=== PATIENT | female | born 1950 | race Caucasian/White ===

== ENCOUNTER 2025-05-31 12:33 | Emergency (ER) | payer MEDICARE, OTHER, SELFPAY ==
--- OUTSIDE RECORDS SUMMARY | 2025-05-31 12:44 | XMS_ITS | Patient Health Record ---
Author Organization [facility] Address [address] [place] [address] Care Team Providers Care Dining Car Waiter/Waitress Name Role Phone kayleemaria luisa PiersondStu Unavailable [phone] Reason For Referral No Information Immunizations Vaccine Route Administration Date Status Comme nts Flu high dose IM Intramuscular 08/26/2021 Administered zzzCOVID - Pfizer IM Intramuscular 01/28/2021 Administered zzzCOVID - Pfizer IM Intramuscular 08/26/2021 Administered zzzCOVID - Pfizer IM Intramuscular 09/24/2021 Administered Plan Of Treatment No Information Insurance Providers Payer Name Payer Address Payer Phone Subscriber Number Group Number Insured Name Patient Relationship to Insured Coverage Start Date Coverage End Date Medicare ( MAIN ) [facility] [address] [place], [place] [id number] [phone] [id number] Gretchen Mehta Self - patient is the insured
[2025-05-31 12:46] VITALS: BP 121/67; PULSE 62; RESP 16; TEMP 36.2; O2SAT 99
--- NOTE | 2025-05-31 13:01 | ED.GENADULT ---
HPI - General Adult General Chief complaint: Ear Stated complaint: LT Ear Problem History of Present Illness HPI narrative: Gretchen Mehta is a 74 y/o female with PMHx of HTN, GERD and HLD who presents today with having some crackling feeling in her left ear for about 3-4 days and now she is having pain to that ear. SHe denies any known fevers/ no sore throat/ no congestion / no cough. Related Data Home Medications ?Medication ?Instructions ?Recorded ?Confirmed ?Last Taken ?Type aspirin 81 mg tablet,delayed mg 05/31/25 Unknown History release omeprazole 20 mg capsule,delayed mg 05/31/25 Unknown History release simvastatin 10 mg tablet mg 05/31/25 Unknown History timolol maleate 0.5 % eye drops drp 05/31/25 Unknown History Allergies Allergy/AdvReac Type Severity Reaction Status Date / Time guaifenesin (From Entex [place]) AdvReac Intermediate Headache Verified 05/31/25 12:52 phenylephrine (From [employer]tex [place]) AdvReac Intermediate Headache Verified 05/31/25 12:52 phenylpropanolamine (From AdvReac Intermediate Headache Verified 05/31/25 12:52 Entex [place]) Review of Systems Review of Systems: All systems reviewed & are unremarkable except as noted in HPI and below Exam Narrative: GENERAL: Well-appearing, well-nourished, and in no acute distress. HEAD: Normocephalic, atraumatic. EYES: PERRLA and EOMI. ENT: Nares clear, no rhinorrhea or epistaxis. Mucous membranes moist. Oropharynx without tonsillar hypertrophy exudate or other lesions. R TM pearly valdez non bulging canal clear, LTM + effusion with some pus at the base wtih mild erythema noted, canal is clear NECK: Supple. No adenopathy or masses. CHEST: Clear to auscultation. No respiratory distress. No wheezes rales or rhonchi HEART: Regular rate and rhythm. EXTREMITIES: Normal range of motion. No edema. SKIN: Warm, dry, no rash. NEURO: No focal deficits. Alert and oriented x3. Course Course Level of Care: Express Care Visit Vital Signs Vital signs: Vital Signs Temperature 36.2 C L 05/31/25 12:46 Pulse Rate 62 05/31/25 12:46 Respiratory Rate 16 05/31/25 12:46 Blood Pressure 121/67 05/31/25 12:46 Pulse Oximetry 99 05/31/25 12:46 Temperature 36.2 C L 05/31/25 12:46 Pulse Rate 62 05/31/25 12:46 Respiratory Rate 16 05/31/25 12:46 Blood Pressure 121/67 05/31/25 12:46 Pulse Oximetry 99 05/31/25 12:46 Medical Decision Making MDM Narrative Medical decision making narrative: 74 y/o presenting with acute ear pain, exam consistent with otitis media with effusion. No mastoid tenderness or headaches or neck stiffness, doubt mastoiditis or meningitis, patient is very well-appearing. Started on amoxicillin and zyrtec. Patient discharged in stable condition to follow up with PCP. Pulse oximetry interpretation: not hypoxic DISPOSITION: Discharged to home in stable condition. IMPRESSION: 1. Acute otitis media, with effusion Left Medical Records Medical records reviewed: Yes I reviewed the external patient's medical records. Vital Signs Vital Signs: Vital Signs Temperature 36.2 C L 05/31/25 12:46 Pulse Rate 62 05/31/25 12:46 Respiratory Rate 16 05/31/25 12:46 Blood Pressure 121/67 05/31/25 12:46 Pulse Oximetry 99 05/31/25 12:46 Temperature 36.2 C L 05/31/25 12:46 Pulse Rate 62 05/31/25 12:46 Respiratory Rate 16 05/31/25 12:46 Blood Pressure 121/67 05/31/25 12:46 Pulse Oximetry 99 05/31/25 12:46 VItals reviewed by sc Discharge Plan Discharge Clinical Impression: Otitis media Qualifiers: Otitis media type: mucoid Chronicity: acute Laterality: left Qualified Code(s): H65.192 - Other acute nonsuppurative otitis media, left ear Patient Disposition: Home Condition: Stable Instructions: Antibiotic Form Additional Instructions: Start taking the Amoxicillin twice daily for 7 days Start taking the Zyrtec (Cetirizine) once daily to help with the fluid behind your ear drum Follow up with your PCP in the next 1-2 weeks to ensure this is improving Patient Language: Citizen Of [place] Prescriptions: New amoxicillin 875 mg tablet 875 mg PO Q12H Qty: 14 0RF Allergy Relief (cetirizine) 10 mg capsule 10 mg PO DAILY Qty: 30 0RF No Action simvastatin 10 mg tablet aspirin 81 mg tablet,delayed release (DR/EC) omeprazole 20 mg capsule,delayed release(DR/EC) timolol maleate 0.5 % drops Follow-up/Referrals: Eufemia,Shankar [Other] - 2 Weeks Time of Disposition: 13:07
== END 2025-05-31 13:08 | disposition home or self-care (01) ==
PROVIDERS: Emergency Provider Nurse Practitioner Family
DX: H65.192 Other acute nonsuppurative otitis media, left ear (principal); I10 Essential (primary) hypertension; E78.5 Hyperlipidemia, unspecified; K21.9 Gastro-esophageal reflux disease without esophagitis
CPT/HCPCS: 99203; G0463